=== PATIENT | male | born 1995 | race African-American/Black ===

== ENCOUNTER 2019-10-28 10:43 | Emergency (ER) | payer MEDICAID ==
[~2019-10-28] VITALS: Ht 177.8 cm; Wt 80.0 kg
[2019-10-28 11:50] LABS: EOSINOPHILS % 0.2 % (0.0-5.0); HEMATOCRIT. 45.8 % (42.0-52.0); HEMOGLOBIN. 15.6 g/dL (14.0-18.0); LYMPHOCYTES % 20.1 % (20.0-50.0); MEAN CORPUSCULAR HEMOGLOBIN 27.5 pg (28.0-32.0); MEAN CORPUSCULAR VOLUME 80.9 fL (80.0-94.0); MEAN PLATELET VOLUME 9.5 fl (7.4-10.4); MONOCYTES % 8.5 % (2.0-8.0); NEUTROPHILS % 70.2 % (40.0-76.0); PLATELET 252 x1000/uL (130-400); RED BLOOD CELL COUNT 5.66 mill/uL (4.7-6.1); RED CELL DISTRIBUTION WIDTH 13.7 % (11.6-14.6)
[2019-10-28 11:55] LABS: CHLORIDE 104 mEq/L (98-107)
[2019-10-28 11:59] LABS: ETHANOL BLOOD < 10 mg/dL
[2019-10-28] MEDS ORDERED: LORAZEPAM 2MG/ML CPJ IM ONE (12:00)
[2019-10-28] MEDS ORDERED: HALOPERIDOL LACTATE 5MG/ML VIAL IM ONE (12:00)
[2019-10-28 14:06] LABS: CLARITY URINE CLEAR (CLEAR); COLOR URINE DARK YELLOW (YELLOW); KETONES URINE 2+ (NEGATIVE); LEUKOCYTE ESTERASE URINE NEGATIVE (NEGATIVE); NITRITE URINE NEGATIVE (NEGATIVE); OCCULT BLOOD URINE NEGATIVE (NEGATIVE); PH URINE 5.5 (4.5-8.0); PROTEIN URINE TRACE (NEGATIVE); SPECIFIC GRAVITY URINE 1.028 (1.005-1.030)
[2019-10-28 14:19] LABS: *BARBITURATES SCREEN URINE NEGATIVE (NEGATIVE)
[2019-10-28 14:20] LABS: *BENZODIAZEPINES SCREEN URINE NEGATIVE (NEGATIVE); *COCAINE SCREEN URINE NEGATIVE (NEGATIVE); CANNABINOID URINE SCREEN NEGATIVE (NEGATIVE); METHADONE URINE SCREEN NEGATIVE (NEGATIVE); OPIATES URINE SCREEN NEGATIVE (NEGATIVE); PHENCYCLIDINE URINE SCREEN NEGATIVE (NEGATIVE)
[2019-10-28 14:21] LABS: *AMPHETAMINES SCREEN URINE NEGATIVE (NEGATIVE)
[2019-10-28 14:28] VITALS: BP 140/81
== END 2019-10-28 14:57 | disposition home or self-care (01) ==
LOC: ER 10:43 → EDBD 10:43 → ER 14:57
DX: F23 Brief psychotic disorder (principal); Z78.1 Physical restraint status
CPT/HCPCS: 36415; 80053; 80305; 80307; 80320; 80329; 81003; 85025; 96372; 99285; J1630; J2060; G0480